=== PATIENT | male | born 1940 | race Caucasian/White ===

== ENCOUNTER → 2017-06-02 | Outpatient (CLI) | payer OTHER, BC | LOC: RAD 09:00 | DX: R05 Cough (principal) ==

== ENCOUNTER → 2018-04-12 | Outpatient (CLI) | payer OTHER, BC ==
[2018-04-12 14:35] LABS: CREATININE 1.2 mg/dL (0.7-1.3)
== END ==
LOC: CAT 04-10 11:10
PROVIDERS: Family Medicine
DX: J98.4 Other disorders of lung (principal); N28.1 Cyst of kidney, acquired; I25.10 Atherosclerotic heart disease of native coronary artery without angina pectoris

== ENCOUNTER → 2019-06-25 | Outpatient (CLI) | payer OTHER, BC | LOC: CAT 09:42 | DX: R91.1 Solitary pulmonary nodule (principal); I25.10 Atherosclerotic heart disease of native coronary artery without angina pectoris; J84.10 Pulmonary fibrosis, unspecified; J98.4 Other disorders of lung ==

== ENCOUNTER → 2019-09-05 | Outpatient (CLI) | payer OTHER, BC | LOC: SJCVC 10:07 | DX: R00.1 Bradycardia, unspecified (principal); R93.1 Abnormal findings on diagnostic imaging of heart and coronary circulation; E78.00 Pure hypercholesterolemia, unspecified; I25.10 Atherosclerotic heart disease of native coronary artery without angina pectoris; I10 Essential (primary) hypertension; I65.23 Occlusion and stenosis of bilateral carotid arteries ==

== ENCOUNTER 2019-12-11 16:27 | Emergency (ER) | payer OTHER, BC ==
[~2019-12-11] VITALS: Ht 180.3 cm; Wt 72.6 kg
[2019-12-11] MEDS ORDERED: LIPITOR 20 MG T20 M1 PO (17:02)
[2019-12-11] MEDS ORDERED: LISINOPRIL-HCT1 EAC1 PO (17:03)
[2019-12-11] MEDS ORDERED: PROAIR HFA8.5 GM INH (17:03)
[2019-12-11 19:18] VITALS: BP 123/73
== END 2019-12-11 19:00 | disposition home or self-care (01) ==
LOC: ER 16:27
DX: R05 Cough (principal); Z20.828 Contact with and (suspected) exposure to other viral communicable diseases; Z79.899 Other long term (current) drug therapy

== ENCOUNTER → 2019-12-18 | Outpatient (CLI) | payer OTHER, BC ==
[~2019-12-18] MED LIST: LIPITOR 20 MG T20 M1 PO; LISINOPRIL-HCT1 EAC1 PO; PROAIR HFA8.5 GM INH
[2019-12-18 15:50] LABS: CREATININE 1.5 mg/dL (0.7-1.3)
== END ==
LOC: LABMALL 14:24 → ULTRA 14:24
PROVIDERS: ATTEND Family Medicine
DX: I82.401 Acute embolism and thrombosis of unspecified deep veins of right lower extremity (principal); I25.10 Atherosclerotic heart disease of native coronary artery without angina pectoris; I26.99 Other pulmonary embolism without acute cor pulmonale; J98.4 Other disorders of lung

== ENCOUNTER → 2019-12-28 | Outpatient (CLI) | payer OTHER, BC ==
[2019-12-28 09:46] LABS: CREATININE 1.4 mg/dL (0.7-1.3)
== END ==
LOC: CAT 08:46
PROVIDERS: ATTEND Family Medicine
DX: C85.90 Non-Hodgkin lymphoma, unspecified, unspecified site (principal); N28.1 Cyst of kidney, acquired; R19.5 Other fecal abnormalities; N40.0 Benign prostatic hyperplasia without lower urinary tract symptoms

== ENCOUNTER → 2020-01-16 | Outpatient (CLI) | payer OTHER, BC | LOC: SJCVCIMAG 07:16 | PROVIDERS: ATTEND Internal Medicine Cardiovascular Disease | DX: I08.3 Combined rheumatic disorders of mitral, aortic and tricuspid valves (principal); I65.23 Occlusion and stenosis of bilateral carotid arteries; E04.1 Nontoxic single thyroid nodule; I25.10 Atherosclerotic heart disease of native coronary artery without angina pectoris; R00.1 Bradycardia, unspecified; R93.1 Abnormal findings on diagnostic imaging of heart and coronary circulation; E78.00 Pure hypercholesterolemia, unspecified; Z79.899 Other long term (current) drug therapy; Z79.82 Long term (current) use of aspirin; Z86.711 Personal history of pulmonary embolism ==

== ENCOUNTER → 2020-03-19 | Outpatient (CLI) | payer OTHER, BC | LOC: SJCVCIMAG 06:51 | PROVIDERS: ATTEND Internal Medicine Cardiovascular Disease | DX: R94.31 Abnormal electrocardiogram [ECG] [EKG] (principal); I82.431 Acute embolism and thrombosis of right popliteal vein; I82.411 Acute embolism and thrombosis of right femoral vein; I10 Essential (primary) hypertension; E78.00 Pure hypercholesterolemia, unspecified; E04.1 Nontoxic single thyroid nodule; I25.10 Atherosclerotic heart disease of native coronary artery without angina pectoris; I26.99 Other pulmonary embolism without acute cor pulmonale; R00.1 Bradycardia, unspecified; Z79.899 Other long term (current) drug therapy ==

== ENCOUNTER → 2020-07-25 | Outpatient (CLI) | payer OTHER, BC | LOC: CAT 10:37 | PROVIDERS: ATTEND Pediatrics | DX: R91.8 Other nonspecific abnormal finding of lung field (principal); J98.4 Other disorders of lung; I25.10 Atherosclerotic heart disease of native coronary artery without angina pectoris; N28.1 Cyst of kidney, acquired; Z90.5 Acquired absence of kidney ==

== ENCOUNTER → 2020-09-17 | Outpatient (CLI) | payer OTHER, BC | LOC: SJCVCIMAG 07:15 | PROVIDERS: ATTEND Internal Medicine Cardiovascular Disease | DX: I82.401 Acute embolism and thrombosis of unspecified deep veins of right lower extremity (principal); I26.99 Other pulmonary embolism without acute cor pulmonale; I10 Essential (primary) hypertension; E78.00 Pure hypercholesterolemia, unspecified; E04.1 Nontoxic single thyroid nodule; I65.23 Occlusion and stenosis of bilateral carotid arteries; D68.59 Other primary thrombophilia; I34.0 Nonrheumatic mitral (valve) insufficiency; I25.10 Atherosclerotic heart disease of native coronary artery without angina pectoris; I38 Endocarditis, valve unspecified; J30.1 Allergic rhinitis due to pollen; J42 Unspecified chronic bronchitis; Z72.89 Other problems related to lifestyle; Z79.01 Long term (current) use of anticoagulants; Z79.899 Other long term (current) drug therapy; Z85.828 Personal history of other malignant neoplasm of skin ==

== ENCOUNTER → 2021-03-16 | Outpatient (CLI) | payer OTHER, BC | LOC: SJCVCIMAG 08:52 | PROVIDERS: ATTEND Internal Medicine Cardiovascular Disease | DX: I35.8 Other nonrheumatic aortic valve disorders (principal); I82.401 Acute embolism and thrombosis of unspecified deep veins of right lower extremity; I10 Essential (primary) hypertension; E78.00 Pure hypercholesterolemia, unspecified ==